=== PATIENT | male | born 1975 | race Caucasian/White ===

== ENCOUNTER 2017-12-25 17:07 | Inpatient (IN) ==
[2017-12-25 19:57] LABS: Baso # (Auto) 0.1 th/mm3 (0.0-0.2); Baso % (Auto) 0.8 % (0.0-2.0); Eos # (Auto) 0.1 th/mm3 (0.0-0.4); Eos % (Auto) 0.8 % (0.0-4.0); Hematocrit 44.3 % (39.0-51.0); Hemoglobin 14.8 gm/dL (13.0-17.0); Lymph # (Auto) 2.7 th/mm3 (1.0-4.8); Lymph % (Auto) 30.4 % (9.0-44.0); Mean Corpuscular HGB Conc 33.5 % (32.0-36.0); Mean Corpuscular Volume 89.7 fL (80.0-100.0); Mean Platelet Volume 9.5 fL (7.0-11.0); Mono # (Auto) 0.6 th/mm3 (0.0-0.9); Neut # (Auto) 5.4 th/mm3 (1.8-7.7); Platelet Count 276 th/mm3 (150-450); Red Blood Count 4.94 mil/mm3 (4.50-5.90); Red Cell Distribution Width 12.8 % (11.6-17.2); White Blood Count 8.9 th/mm3 (4.0-11.0)
[2017-12-25 20:09] LABS: Albumin 4.3 g/dL (3.4-5.0); Anion Gap 11 meq/L (5-15); Aspartate Aminotransferase 9 U/L (15-37); Blood Urea Nitrogen 14 mg/dL (7-18); Calcium 9.1 mg/dL (8.5-10.1); Carbon Dioxide 25.9 meq/L (21.0-32.0); Chloride 104 meq/L (98-107); Glomerular Filtration Rate 88 mL/min (>89); Glucose,Random 79 mg/dL (74-106); Potassium 3.8 meq/L (3.5-5.1); Sodium 141 meq/L (136-145)
[2017-12-25 20:10] LABS: Alanine Aminotransferase 16 U/L (12-78)
[2017-12-25 20:20] LABS: Alkaline Phosphatase 98 U/L (45-117); Thyroid Stimulating Hormone 0.816 uIU/mL (0.358-3.740); Total Protein 7.7 g/dL (6.4-8.2)
--- NOTE | 2017-12-25 21:21 | ED ---
HPI General Chief Complaint: Psychiatric Symptoms Stated Complaint: psych eval/vcso Time Seen by Provider: 12/25/17 19:31 Source: patient Mode of arrival: ambulatory Limitations: no limitations History of Present Illness HPI Narrative: 42-year-old white male presents emergency department under [place] act by PD. The patient had contacted police advising them he was having suicidal thoughts. He states that he has a history of PTSD and major depression. [facility] He feels that he does not want to continue to live. He does not have any active plan on suicide. He denies any toxic ingestions. No homicidal ideation. According to the Avila act in a discussion with the patient he has not been eating well. He feels that he has been losing weight. He has not been sleeping. Patient denies any active medical complaints. He denies any fever chills. No chest pain or shortness of breath. No nausea vomiting. No abdominal pain or urinary symptoms. MD complaint: suicidal ideation and feels depressed Onset (ago): week(s) Duration: constant and getting worse History of same: Yes Relieving factors: none Exacerbating factors: drug use and other (Chronic neck pain) Associated psychiatric symptoms: depression and suicidal ideation Associated symptoms: insomnia and other (Weight loss) Treatments prior to arrival: none Related Data Home Medications Medication Instructions Recorded Confirmed Depakote ER 250 mg PO DAILY 12/25/17 12/25/17 sertraline 100 mg PO DAILY 12/25/17 12/25/17 trazodone 50 mg PO HS 12/25/17 12/25/17 Allergies Allergy/AdvReac Type Severity Reaction Status Date / Time lithium Allergy Intermediate Swelling Unverified 01/24/17 12:24 Review of Systems ROS Unobtainable All other systems reviewed negative except as stated in HPI Constitutional Reports as per HPI, Reports weight loss and Reports other (Chronic neck pain) PMFSH Social History Social History How Often Do You Have a Drink Containing Alcohol: Monthly or less Recent Travel in [place] within the Last 8 Weeks: No Recent Out of Country Travel within the Last 8 Weeks: No Substance Abuse Detail Alcohol: Substance Use Status: Early Remission Route Used Substance Abuse: By Mouth Substance Abuse Comment: Pt had a period of sobriety. Immunization History Tetanus Immunization: <5 Years Tetanus Immunization Year if Known: 2016 Hx Influenza Vaccine This Season: No Exam Narrative Exam Narrative: GENERAL: Well-nourished, well-developed patient. SKIN: Warm and dry. HEAD: Normocephalic and atraumatic. EYES: No scleral icterus. No injection or drainage. ENT: No nasal drainage noted. Mucous membranes pink. Airway patent. NECK: Supple, trachea midline. Moves head freely without obvious discomfort. CARDIOVASCULAR: Regular rate and rhythm without murmurs, gallops, or rubs. RESPIRATORY: Breath sounds equal bilaterally. No accessory muscle use. GASTROINTESTINAL: Abdomen soft, non-tender, nondistended. EXTREMITIES: No cyanosis or edema. BACK: Nontender without obvious deformity. No CVA tenderness. NEURO: Patient is alert and oriented. no sensorimotor deficits. Nonfocal. Normal speech. PSYCH: No delusions. No auditory or visual hallucinations. Course Hospital Course: The patient has been medically cleared Initial Documented Vital Signs Temperature 99.4 F 12/25/17 17:14 Pulse Rate 83 12/25/17 17:14 Blood Pressure 138/85 12/25/17 17:14 Pulse Oximetry 98 12/25/17 17:14 Last Documented Vital Signs Temperature 98.2 F 12/28/17 06:00 Pulse Rate 58 L 12/28/17 06:00 Respiratory Rate 18 12/28/17 06:00 Blood Pressure 129/58 L 12/28/17 06:00 Pulse Oximetry 98 12/28/17 06:00 Medical Decision Making Differential Diagnosis Differential Diagnosis: MDM: High Differential diagnoses: Schizophrenia, schizoaffective disorder, bipolar, anxiety, depression, adjustment reaction, mood disorder NOS, ODD, depressive disorder NOS, dementia, dementia with agitation, psychosis NOS, substance induced mood disorder, DMDD, Asperger syndrome, infection,electrolyte abnormality, malingering. Mental health screening discussed with the patient. Psychiatric screen ordered. Lab Data Result diagrams: 12/25/17 17:17 12/27/17 06:41 Lab Results 12/25/17 12/25/17 12/25/17 Range/Units 17:17 17:17 17:17 WBC 8.9 (4.0-11.0) th/mm3 RBC 4.94 (4.50-5.90) mil/mm3 Hgb 14.8 (13.0-17.0) gm/dL Hct 44.3 (39.0-51.0) % MCV 89.7 (80.0-100.0) fL MCH 30.0 (27.0-34.0) pg MCHC 33.5 (32.0-36.0) % RDW 12.8 (11.6-17.2) % Plt Count 276 (150-450) th/mm3 MPV 9.5 (7.0-11.0) fL Neut % (Auto) 61.0 (16.0-70.0) % Lymph % (Auto) 30.4 (9.0-44.0) % [place] % (Auto) 7.0 (0.0-8.0) % Eos % (Auto) 0.8 (0.0-4.0) % Baso % (Auto) 0.8 (0.0-2.0) % Neut # (Auto) 5.4 (1.8-7.7) th/mm3 Lymph # (Auto) 2.7 (1.0-4.8) th/mm3 [place] # (Auto) 0.6 (0.0-0.9) th/mm3 Eos # (Auto) 0.1 (0.0-0.4) th/mm3 Baso # (Auto) 0.1 (0.0-0.2) th/mm3 WBC Differential . Differential Comment Auto diff final Sodium 141 (136-145) meq/L Potassium 3.8 (3.5-5.1) meq/L Chloride 104 (98-107) meq/L Carbon Dioxide 25.9 (21.0-32.0) meq/L Anion Gap 11 (5-15) meq/L BUN 14 (7-18) mg/dL Creatinine 0.94 (0.60-1.30) mg/dL Estimated GFR 88 L (>89) mL/min Random Glucose 79 (74-106) mg/dL Hemoglobin A1c (4.3-6.0) % Calcium 9.1 (8.5-10.1) mg/dL Total Bilirubin 0.4 (0.2-1.0) mg/dL AST 9 L (15-37) U/L ALT 16 (12-78) U/L Alkaline Phosphatase 98 (45-117) U/L Total Protein 7.7 (6.4-8.2) g/dL Albumin 4.3 (3.4-5.0) g/dL Triglycerides (42-150) mg/dL Cholesterol (120-200) mg/dL LDL Cholesterol, Calc (0-99) mg/dL HDL Cholesterol (40.0-60.0) mg/dL Cholesterol/HDL Ratio Ratio TSH 0.816 (0.358-3.740) uIU/mL Urine Opiates Screen (Neg) Ur Barbiturates Screen (Neg) Valproic Acid 13 L (50-100) mcg/mL Ur Amphetamines Screen (Neg) U Benzodiazepines Scrn (Neg) Urine Cocaine Screen (Neg) U Cannabinoids Screen (Neg) Serum Alcohol Less than 3 (0-5) mg/dL 12/25/17 12/26/17 12/26/17 Range/Units 20:40 07:41 07:41 WBC (4.0-11.0) th/mm3 RBC (4.50-5.90) mil/mm3 Hgb (13.0-17.0) gm/dL Hct (39.0-51.0) % MCV (80.0-100.0) fL MCH (27.0-34.0) pg MCHC (32.0-36.0) % RDW (11.6-17.2) % Plt Count (150-450) th/mm3 MPV (7.0-11.0) fL Neut % (Auto) (16.0-70.0) % Lymph % (Auto) (9.0-44.0) % [place] % (Auto) (0.0-8.0) % Eos % (Auto) (0.0-4.0) % Baso % (Auto) (0.0-2.0) % Neut # (Auto) (1.8-7.7) th/mm3 Lymph # (Auto) (1.0-4.8) th/mm3 [place] # (Auto) (0.0-0.9) th/mm3 Eos # (Auto) (0.0-0.4) th/mm3 Baso # (Auto) (0.0-0.2) th/mm3 WBC Differential Differential Comment Sodium 140 (136-145) meq/L Potassium 3.6 (3.5-5.1) meq/L Chloride 102 (98-107) meq/L Carbon Dioxide 25.4 (21.0-32.0) meq/L Anion Gap 13 (5-15) meq/L BUN 11 (7-18) mg/dL Creatinine 0.82 (0.60-1.30) mg/dL Estimated GFR Greater than 89 (>89) mL/min Random Glucose 77 (74-106) mg/dL Hemoglobin A1c 5.2 (4.3-6.0) % Calcium 9.0 (8.5-10.1) mg/dL Total Bilirubin (0.2-1.0) mg/dL AST (15-37) U/L ALT (12-78) U/L Alkaline Phosphatase (45-117) U/L Total Protein (6.4-8.2) g/dL Albumin (3.4-5.0) g/dL Triglycerides 84 (42-150) mg/dL Cholesterol 167 (120-200) mg/dL LDL Cholesterol, Calc 107 H (0-99) mg/dL HDL Cholesterol 42.8 (40.0-60.0) mg/dL Cholesterol/HDL Ratio 3.90 Ratio TSH (0.358-3.740) uIU/mL Urine Opiates Screen Neg (Neg) Ur Barbiturates Screen Neg (Neg) Valproic Acid (50-100) mcg/mL Ur Amphetamines Screen Neg (Neg) U Benzodiazepines Scrn Pos H (Neg) Urine Cocaine Screen Neg (Neg) U Cannabinoids Screen Pos H (Neg) Serum Alcohol (0-5) mg/dL 18 12/27/17 Range/Units 06:41 06:41 WBC (4.0-11.0) th/mm3 RBC (4.50-5.90) mil/mm3 Hgb (13.0-17.0) gm/dL Hct (39.0-51.0) % MCV (80.0-100.0) fL MCH (27.0-34.0) pg MCHC (32.0-36.0) % RDW (11.6-17.2) % Plt Count (150-450) th/mm3 MPV (7.0-11.0) fL Neut % (Auto) (16.0-70.0) % Lymph % (Auto) (9.0-44.0) % [place] % (Auto) (0.0-8.0) % Eos % (Auto) (0.0-4.0) % Baso % (Auto) (0.0-2.0) % Neut # (Auto) (1.8-7.7) th/mm3 Lymph # (Auto) (1.0-4.8) th/mm3 [place] # (Auto) (0.0-0.9) th/mm3 Eos # (Auto) (0.0-0.4) th/mm3 Baso # (Auto) (0.0-0.2) th/mm3 WBC Differential Differential Comment Sodium 144 (136-145) meq/L Potassium 3.3 L (3.5-5.1) meq/L Chloride 105 (98-107) meq/L Carbon Dioxide 27.4 (21.0-32.0) meq/L Anion Gap 12 (5-15) meq/L BUN 9 (7-18) mg/dL Creatinine 0.89 (0.60-1.30) mg/dL Estimated GFR Greater than 89 (>89) mL/min Random Glucose 95 (74-106) mg/dL Hemoglobin A1c 5.3 (4.3-6.0) % Calcium 9.1 (8.5-10.1) mg/dL Total Bilirubin (0.2-1.0) mg/dL AST (15-37) U/L ALT (12-78) U/L Alkaline Phosphatase (45-117) U/L Total Protein (6.4-8.2) g/dL Albumin (3.4-5.0) g/dL Triglycerides 83 (42-150) mg/dL Cholesterol 158 (120-200) mg/dL LDL Cholesterol, Calc 99 (0-99) mg/dL HDL Cholesterol 42.4 (40.0-60.0) mg/dL Cholesterol/HDL Ratio 3.72 Ratio TSH (0.358-3.740) uIU/mL Urine Opiates Screen (Neg) Ur Barbiturates Screen (Neg) Valproic Acid (50-100) mcg/mL Ur Amphetamines Screen (Neg) U Benzodiazepines Scrn (Neg) Urine Cocaine Screen (Neg) U Cannabinoids Screen (Neg) Serum Alcohol (0-5) mg/dL Discharge Plan Discharge Disposition Patient Disposition: 01 Discharge Home Discharge Condition Condition: Stable Discharge Order Discharge Orders: Discharge Order (Routine); Ordered 12/28/17 Ordered By: Zack E Caliendo Discharge Details Anticipated Discharge Date: 12/28/17 Physicians Team ED Provider: May Cotton ED Midlevel Provider: Tay Olivas Primary Care Provider: [facility] Attending Provider: Zack Stark Status ED Status: Left Department Discharge Information Discharge Date/Time: 12/25/17 23:38
[2017-12-25 21:25] LABS: Amphetamine Screen,Urine Neg (Neg); Barbiturate Screen,Urine Neg (Neg); Cannabinoid Screen,Urine Pos (Neg); Cocaine Screen,Urine Neg (Neg)
[2017-12-25 21:33] LABS: Opiate Screen,Urine Neg (Neg)
[2017-12-26] MEDS ORDERED: LORazepam 1 MG Tablet PO PRN (03:35)
[2017-12-26] MEDS ORDERED: Acetaminophen 325 MG Tablet PO PRN (03:35)
[2017-12-26] MEDS ORDERED: Aluminum/Magnesium/Simethacone Susp 30 ML UDC PO PRN ×3 (03:35→15:16)
[2017-12-26 09:43] LABS: Anion Gap 13 meq/L (5-15); Blood Urea Nitrogen 11 mg/dL (7-18); Carbon Dioxide 25.4 meq/L (21.0-32.0); Chloride 102 meq/L (98-107); Glomerular Filtration Rate Greater Than 89 mL/min (>89); Glucose,Random 77 mg/dL (74-106); Potassium 3.6 meq/L (3.5-5.1); Sodium 140 meq/L (136-145)
[2017-12-26 09:44] LABS: Cholesterol 167 mg/dL (120-200)
[2017-12-26 09:46] LABS: HDL Cholesterol 42.8 mg/dL (40.0-60.0); LDL Cholesterol,Calculated 107 mg/dL (0-99); Triglycerides 84 mg/dL (42-150)
[2017-12-26 13:14] LABS: Hemoglobin A1c 5.2 % (4.3-6.0)
[2017-12-26] MEDS ORDERED: Divalproex 500 MG ER Tablet PO SCH (15:15)
[2017-12-26] MEDS ORDERED: Bisacodyl 10 MG Supp RECTAL PRN (15:16)
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
[2017-12-26] MEDS ORDERED: OLANZapine 10 MG Tablet PO SCH (21:00)
[2017-12-26] MEDS: Senna/Docusate Sodium 8.6/50 MG Tablet PO SCH (22:45)
[2017-12-27 07:19] LABS: Anion Gap 12 meq/L (5-15); Blood Urea Nitrogen 9 mg/dL (7-18); Calcium 9.1 mg/dL (8.5-10.1); Carbon Dioxide 27.4 meq/L (21.0-32.0); Chloride 105 meq/L (98-107); Glomerular Filtration Rate Greater Than 89 mL/min (>89); Glucose,Random 95 mg/dL (74-106); Potassium 3.3 meq/L (3.5-5.1); Sodium 144 meq/L (136-145)
[2017-12-27 07:20] LABS: Cholesterol 158 mg/dL (120-200); Triglycerides 83 mg/dL (42-150)
[2017-12-27 07:22] LABS: Chol/HDL Ratio 3.72 Ratio; HDL Cholesterol 42.4 mg/dL (40.0-60.0); LDL Cholesterol,Calculated 99 mg/dL (0-99)
[2017-12-27] MEDS ORDERED: Sertraline 100 MG Tablet PO SCH (09:00)
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
[2017-12-27] MEDS: Senna/Docusate Sodium 8.6/50 MG Tablet PO SCH ×2 (15:36→20:19)
[2017-12-27] MEDS: QUEtiapine 25 MG Tablet PO SCH (17:19)
[2017-12-27 19:07] LABS: Hemoglobin A1c 5.3 % (4.3-6.0)
[2017-12-28] MEDS: Senna/Docusate Sodium 8.6/50 MG Tablet PO SCH (08:44)
[2017-12-28] MEDS: QUEtiapine 25 MG Tablet PO SCH (11:40)
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
== END 2017-12-28 14:55 | disposition home or self-care (01) ==
LOC: NEDAMB 17:07 → NEDA 23:12 → H260 23:39
PROVIDERS: ADMIT Psychiatry & Neurology Psychiatry; ATTEND Psychiatry & Neurology Psychiatry